=== PATIENT | female | born 1995 | race Caucasian/White ===

== ENCOUNTER 2017-02-04 00:47 | Emergency (ER) | payer MEDICAID ==
[~2017-02-04] VITALS: Ht 152.4 cm; Wt 121.6 kg
[~2017-02-04 00:47] MED LIST: ASPIRIN CHILDRE81 M2 PO; NEXIUM40 MG PO
[2017-02-04] MEDS ORDERED: AMOXICILLIN 50500 MG PO (01:00)
--- NOTE | 2017-02-04 01:05 | Emergency Room Report ---
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 N Clinical Suspician of Infection? N Mental Status: 1 - Regular (Normal Baseline) Sepsis Risk:Possible Sepsis Risk Have you (or family members/close friends) recently traveled outside the [place]? N If Yes, where/when: Have you had exposure to infectious disease within the past month? N TB? Other? Specify: Source patient, RN notes reviewed, family, old records Exam Limitations no limitations Comment over the last 2 days she has rt ear pain with no fever or sore throat and no cough Cardiac Chest Pain Chest pain indicative of cardiac No Timing/Duration this evening Severity moderate ALLERGIES Coded Allergies: acetaminophen (From PERCOCET) (NA-NAUSEA/VOMITING 02/04/17) oxycodone (From PERCOCET) (NA-NAUSEA/VOMITING 02/04/17) Home Medications Reported Medications Amoxicillin Trihydrate (Amoxicillin 500MG) 500 MG PO TID History Medical History General CAD? No Angina: No CO: No Hypertension? Yes Hyperlipidemia? No CHF? No DVT? No PE? No COPD? No Asthma? No Anemia? No GERD? No Gastric ulcers? No GI Bleed? No Hernia? No Thyroid Problems? No Hypothyroidism? No CVA? No Seizures? No Diabetes? No Renal Insuffiency? No End Stage Renal Disease? No UTI? No Stones? No BPH? No GB Disease: No Nephritic Syndrome? No Asplenia? No Hepatitis? No Sickle Cell Disease? No Arthritis? No Migraines? No Cataracts? No Glaucoma? No MRSA? No HIV? No TB? No Anxiety? No Depression? No Cancer? No More? 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 denies: ear discharge, throat swelling. Respiratory denies cough Cardiovascular denies palpitations Gastrointestinal denies diarrhea, denies vomiting Genitourinary denies: dysuria, frequency, hesitancy. Musculoskeletal denies back pain, denies joint pain, denies joint swelling, denies neck pain Skin denies rash Psychiatric/Neurological denies headache, denies seizure Physical Exam Vital Signs Vital Signs Date Time Temp Pulse Resp B/P Pulse O2 O2 Flow FiO2 Ox Delivery Rate 02/04 0049 97.4 98 20 154/95 96 - WBC >12,000 or <4,000 or 10% bands? 2 or more SIRS Criteria Met? B/P:154/95 MAP:114 Creatinine >2.0? UA output<0.5ml/kg/hr for 2 hrs? Platelet count >100,000? Lactate >2.0mmol/1? INR >1.2 or PTT > than 60 sec? Evidence of Organ Dysfunction? Provider documented clinical suspician of infection? N Sepsis Criteria Count: 2 Sepsis Risk: Possible Sepsis Risk General Appearance no apparent distress Eye Exam - bilateral eye PERRL, bilateral eye EOMI Ear, Nose, Throat normal ENT inspection, gingival disease Neck supple Respiratory Status No: respiratory distress. 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 No Departure Departure Time of Disposition 010 Disposition DC Home or Self Care(routine) Clinical Impression Primary Impression: Acute ear pain Qualifiers: Laterality: right Qualified Code: H92.01 - Otalgia, right ear Condition STABLE Patient Instructions DI for Ear Pain-Adult Additional Instructions see pcp for follow up and use meds Discharge Counseling Counseled pt/family regarding diagnosis, test results, medications/RX, follow up needs Prescriptions Current Visit Scripts CEPHALEXIN (Keflex 500MG Capsule) 500 MG PO Q8H #21 CAP ED Critical Care Critical Care No at 0114
--- NOTE | 2017-02-04 01:05 | Emergency Room Report ---
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 N Clinical Suspician of Infection? N Mental Status: 1 - Regular (Normal Baseline) Sepsis Risk:Possible Sepsis Risk Have you (or family members/close friends) recently traveled outside the [place]? N If Yes, where/when: Have you had exposure to infectious disease within the past month? N TB? Other? Specify: Source patient, RN notes reviewed, family, old records Exam Limitations no limitations Comment over the last 2 days she has rt ear pain with no fever or sore throat and no cough Cardiac Chest Pain Chest pain indicative of cardiac No Timing/Duration this evening Severity moderate ALLERGIES Coded Allergies: acetaminophen (From PERCOCET) (NA-NAUSEA/VOMITING 02/04/17) oxycodone (From PERCOCET) (NA-NAUSEA/VOMITING 02/04/17) Home Medications Reported Medications Amoxicillin Trihydrate (Amoxicillin 500MG) 500 MG PO TID History Medical History General CAD? No Angina: No NM: No Hypertension? Yes Hyperlipidemia? No CHF? No DVT? No PE? No COPD? No Asthma? No Anemia? No GERD? No Gastric ulcers? No GI Bleed? No Hernia? No Thyroid Problems? No Hypothyroidism? No CVA? No Seizures? No Diabetes? No Renal Insuffiency? No End Stage Renal Disease? No UTI? No Stones? No BPH? No GB Disease: No Nephritic Syndrome? No Asplenia? No Hepatitis? No Sickle Cell Disease? No Arthritis? No Migraines? No Cataracts? No Glaucoma? No MRSA? No HIV? No TB? No Anxiety? No Depression? No Cancer? No More? 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 denies: ear discharge, throat swelling. Respiratory denies cough Cardiovascular denies palpitations Gastrointestinal denies diarrhea, denies vomiting Genitourinary denies: dysuria, frequency, hesitancy. Musculoskeletal denies back pain, denies joint pain, denies joint swelling, denies neck pain Skin denies rash Psychiatric/Neurological denies headache, denies seizure Physical Exam Vital Signs Vital Signs Date Time Temp Pulse Resp B/P Pulse O2 O2 Flow FiO2 Ox Delivery Rate 02/04 0049 97.4 98 20 154/95 96 - WBC >12,000 or <4,000 or 10% bands? 2 or more SIRS Criteria Met? B/P:154/95 MAP:114 Creatinine >2.0? UA output<0.5ml/kg/hr for 2 hrs? Platelet count >100,000? Lactate >2.0mmol/1? INR >1.2 or PTT > than 60 sec? Evidence of Organ Dysfunction? Provider documented clinical suspician of infection? N Sepsis Criteria Count: 2 Sepsis Risk: Possible Sepsis Risk General Appearance no apparent distress Eye Exam - bilateral eye PERRL, bilateral eye EOMI Ear, Nose, Throat normal ENT inspection, gingival disease Neck supple Respiratory Status No: respiratory distress. 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 No Departure Departure Time of Disposition 010 Disposition DC Home or Self Care(routine) Clinical Impression Primary Impression: Acute ear pain Qualifiers: Laterality: right Qualified Code: H92.01 - Otalgia, right ear Condition STABLE Patient Instructions DI for Ear Pain-Adult Additional Instructions see pcp for follow up and use meds Discharge Counseling Counseled pt/family regarding diagnosis, test results, medications/RX, follow up needs Prescriptions Current Visit Scripts CEPHALEXIN (Keflex 500MG Capsule) 500 MG PO Q8H #21 CAP ED Critical Care Critical Care No at 0114
[2017-02-04] MEDS ORDERED: KEFLEX 500MG.500 MG PO (01:11)
[2017-02-04 01:24] VITALS: BP 154/95
== END 2017-02-04 01:25 | disposition home or self-care (01) ==
LOC: ER 00:47
DX: H92.01 Otalgia, right ear (principal); Z72.0 Tobacco use

== ENCOUNTER 2017-07-16 20:01 | Emergency (ER) | payer MEDICAID ==
[~2017-07-16] VITALS: Ht 152.4 cm; Wt 124.7 kg
[~2017-07-16 20:01] MED LIST changes: +AMOXICILLIN 50500 MG PO; +KEFLEX 500MG.500 MG PO; +METOPROLOL SUCC25 M2 PO
[2017-07-16 20:29] LABS: URINE BILIRUBIN - DIPSTICK NEGATIVE (NEG); URINE BLOOD 2+ (NEG)
--- NOTE | 2017-07-16 21:01 | Emergency Room Report ---
See Addendum History of Present Illness Time Seen by [id number] Presenting Problem in Triage Pt arrived:Walked Presenting Problem:PT STATES SHE IS HAVING PAIN IN HER LOWER ABD THAT IS RADIATING TO LOWER BACK, PT STATES SHE IS 15 WEEKS . 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 N Clinical Suspician of Infection? N Mental Status: 1 - Regular (Normal Baseline) Sepsis Risk:Possible Sepsis Risk Have you (or family members/close friends) recently traveled outside the [place]? N If Yes, where/when: Have you had exposure to infectious disease within the past month? N TB? Other? Specify: Source patient, RN notes reviewed, old records Exam Limitations no limitations Comment pt with abd and back pain over the last few days w/o vag bleeding but sl white d /c and no fever or trauma and no dysuria in this 15 week preg- has had u/s and to have shots for prematurity next week - Cardiac Chest Pain Chest pain indicative of cardiac No Timing/Duration this evening Severity moderate ALLERGIES Coded Allergies: acetaminophen (From PERCOCET) (NA-NAUSEA/VOMITING 02/04/17) oxycodone (From PERCOCET) (NA-NAUSEA/VOMITING 02/04/17) Home Medications Reported Medications Metoprolol Succinate 25 MG PO DAILY #30 History Medical History General CAD? No Angina: No DE: No Hypertension? Yes Hyperlipidemia? No CHF? No DVT? No PE? No COPD? No Asthma? No Anemia? No GERD? No Gastric ulcers? No GI Bleed? No Hernia? No Thyroid Problems? No Hypothyroidism? No CVA? No Seizures? No Diabetes? No Renal Insuffiency? No End Stage Renal Disease? No UTI? No Stones? No BPH? No GB Disease: No Nephritic Syndrome? No Asplenia? No Hepatitis? No Sickle Cell Disease? No Arthritis? No Migraines? No Cataracts? No Glaucoma? No MRSA? No HIV? No TB? No Anxiety? No Depression? No Cancer? No More? 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 Respiratory denies cough, denies shortness of breath, denies wheezing Cardiovascular denies chest pain, denies palpitations, denies syncope Gastrointestinal denies abdominal pain, denies diarrhea, denies vomiting Genitourinary see HPI. denies: abnormal vaginal bleeding, dysuria, frequency, hesitancy, hematuria. Musculoskeletal denies back pain, denies joint pain, denies joint swelling, denies neck pain Skin denies rash Psychiatric/Neurological denies headache, denies seizure Physical Exam Vital Signs Vital Signs Date Time Temp Pulse Resp B/P Pulse O2 O2 Flow FiO2 Ox Delivery Rate 07/16 2241 98.4 85 20 144/72 96 07/16 2115 98.4 97 20 130/60 97 07/16 2045 97 20 130/60 97 07/16 2014 98.4 102 20 131/47 97 - WBC >12,000 or <4,000 or 10% bands? 2 or more SIRS Criteria Met? B/P:144/72 MAP:75 Creatinine >2.0? UA output<0.5ml/kg/hr for 2 hrs? Platelet count >100,000? Lactate >2.0mmol/1? INR >1.2 or PTT > than 60 sec? Evidence of Organ Dysfunction? Provider documented clinical suspician of infection? N Sepsis Criteria Count: 2 Sepsis Risk: Possible Sepsis Risk General Appearance no apparent distress Eye Exam - bilateral eye PERRL, bilateral eye EOMI Ear, Nose, Throat normal ENT inspection Neck supple Respiratory Status No: respiratory distress. 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 No Results/Orders Laboratory Tests 07/16/172121: Sodium 137, Potassium 3.7, Chloride 102, Carbon Dioxide 24, BUN 4 L, Creatinine 0.5 L, Estimated Creat Clear 342 H, Estimated GFR (MDRD) 152, Glucose 94, Calcium 9.2, Total Bilirubin 0.2, AST 9 L, ALT 12, Alkaline Phosphatase 83, Total Protein 7.6, Albumin 3.0 L, Globulin 4.6 H, Albumin/Globulin Ratio 0.7 L, WBC 13.2 H, RBC 4.13 L, Hgb 11.7 L, Hct 34.9 L, MCV 84.4, RDW 13.4, Plt Count 258, MPV 8.4, Gran % 76.0, Gran # 10.0 H, Lymphocytes % 18.6, Monocytes % 4.1, Eosinophils % 1.1, Basophils % 0.1, Lymphocytes # 2.5, Monocytes # 0.5, Eosinophils # 0.2, Basophils # 0.0, PUBS MCHC 33.6, MCH 28.3 07/16/172013: Urine Color YELLOW, Urine Appearance CLEAR, Urine pH 6.0, Ur Specific [place] 1.020, Urine Protein NEGATIVE, Urine Ketones NEGATIVE, Urine Blood 2+ H, Urine Nitrate NEGATIVE, Urine Bilirubin NEGATIVE, Urine Urobilinogen 0.2, Ur Leukocyte Esterase 1+ H, Urine RBC 3-5, Urine WBC 3-5, Ur Squamous Epith Cells 10-20, Urine Bacteria 2+, Urine Yeast OCC, Urine Glucose NEGATIVE Current Medication Orders Sig/Stella Start time Last Medication Dose Route Stop Time Status Admin Sodium Chloride 10 ML PRN PRN 07/16 2100 AC IV 07/17 2054 Orders Procedure Date/time Status IV SALINE LOCK 07/16 2054 Active COMPLETE METABOLIC PANEL 07/16 2054 Complete CBC WITH AUTO DIFF 07/16 2054 Complete URINALYSIS/COMPLETE 07/16 2024 Complete URINE 07/16 2024 Complete CULTURE, URINE 07/16 2014 Active Departure Departure Time of Disposition 2241 Disposition DC Home or Self Care(routine) Clinical Impression Primary Impression: Qualifiers: Weeks of gestation: 15 weeks Qualified Code: Z3A.15 - 15 weeks gestation of Condition STABLE Patient Instructions DI for -- Discomforts and Remedies Additional Instructions call your ob in am for follow up Discharge Counseling Counseled pt/family regarding diagnosis, test results, follow up needs ED Critical Care Critical Care No at [id number]
--- OUTSIDE RECORDS SUMMARY | 2017-07-16 21:03 | External Medical Summary Rpt ---
Demographics Preferred Language Thai Marital Status Unknown Mandaen Affiliation Unknown Race Unknown Ethnic Group Unknown Author Author ELIZABETH Address Unknown Phone Immunization No patient found.
--- OUTSIDE RECORDS SUMMARY | 2017-07-16 21:03 | External Medical Summary Rpt ---
Demographics Preferred Language Swedish Marital Status Unknown Advent Affiliation Unknown Race Unknown Ethnic Group Unknown Author Author ELIZABETH Address Unknown Phone Immunization No patient found.
--- OUTSIDE RECORDS SUMMARY | 2017-07-16 21:04 | External Medical Summary Rpt ---
Author Author MONIQUE Roxann, [employer] Organization [employer] Address Unknown Phone Unavailable Results Choriogonadotropin.beta subunit ( test) [Presence] in Serum or Plasma Observa Value Referen Units Interpr Notes Date tion ce etation Range Choriog 93266.8 No mIU/ML No NON-PRE May 9 onadotr informa informa GNANT 2017 opin.be tion in tion in FEMALES ta source source subunit data data REFEREN CE (pregna RANGE = ncy 0 - 6 test) mIU/mLG [Presen estatio ce] in nal Age Serum or HCG Plasma RANGE0. 2 WEEKS 5 - 501-2 WEEKS 50 - 5002-3 WEEKS 100 - 5,0003- 4 WEEKS 500 - 10,0004 -5 WEEKS 1,000 - 50,0005 -6 WEEKS 10,000 - 100,000 6-8 WEEKS 15,000 - 200,000 2-3 MONTHS 10,000 - 100,000 CBC W Auto Differential panel in Blood Observa Value Referen Units Interpr Notes Date tion ce etation Range Basophils 0 - 0.2 K/MM3 Normal No May 092016 [#/volume on in 11:00 PM ] in source Blood by data Automated count Basophils 0.1 - 2.0 % Normal No May 09 inform2016 leukocyte on in 11:00 PM s in source Blood by data Automated count Eosinophi 0.0 - 0.4 K/mm3 Normal No May 09 ls informati 2016 [#/volume on in 11:00 PM ] in source Blood by data Automated count Eosinophi 0.1 - % Normal No May 09 ls/100 12.0 inform2016 leukocyte on in 11:00 PM s in source Blood by data Automated count Granulocy 1.8 - 7.8 K/mm3 High No May 09 eder informati 2016 [#/volume on in 11:00 PM ] in source Blood by data Automated count Granulocy 37.0 - % Normal No May 09 eder/100 80.0 inform2016 leukocyte on in 11:00 PM s in source Blood by data Automated count Hematocri 37.0 - % Normal No May 09 t [Volume 47.0 ati 2016 on in 11:00 PM Fraction] source of Blood data Hemoglobi 12.2 - g/dL Normal No May 8 n 16.2 informati 2016 [Mass/vol on in 11:00 PM ume] in source Blood data Lymphocyt 0.7 - 4.5 K/mm3 Normal No May 09 es inform2016 [#/volume on in 11:00 PM ] in source Unspecifi data ed specimen by Automated count Lymphocyt 10 - 50.0 % Normal No May 09 es informati 2016 [#/volume on in 11:00 PM ] in source Unspecifi data ed specimen by Automated count Erythrocy 27 - 31.2 pg Normal No May 09 te mean 2016 corpuscul on in 11:00 PM ar source hemoglobi data n [Entitic mass] Erythrocy 31.8 - g/dl Low No May 09 te mean 35.4 2016 corpuscul on in 11:00 PM ar source hemoglobi data n concentra tion [Mass/vol ume] by Automated count Erythrocy 82.2 - fl Normal No May 09 te mean 97.8 inform2016 corpuscul on in 11:00 PM ar volume source [Entitic data volume] by Automated count Monocytes 0.1 - 1.0 K/mm3 Normal No May 8 2016 [#/volume on in 11:00 PM ] in source Blood by data Automated count Monocytes 1.7 - 9.3 % Normal No May 8 /100 2016 leukocyte on in 11:00 PM s in source Blood by data Automated count Platelet 7.4 - fl Normal No May 09 mean 10.4 2016 volume on in 11:00 PM [Entitic source volume] data in Blood by Automated count Platelets 142 - 424 K/mm3 Normal No May 8 informati 2016 [#/volume on in 11:00 PM ] in source Blood data Erythrocy 4.2 - 5.4 M/mm3 Normal No May 8 eder informati 2016 [#/volume on in 11:00 PM ] in source Amniotic data fluid Erythrocy 11.5 - % Normal No May 09 te 17.5 2016 distribut on in 11:00 PM ion width source [Entitic data volume] by Automated count Leukocyte 4.8 - K/MM3 High No Nate 8 s 10.8 informati 2017 [#/volume on in 11:00 PM ] in source Blood data Urinalysis dipstick W Reflex Microscopic panel in Urine Observa Value Referen Units Interpr Notes Date tion ce etation Range Appeara CLEAR CLEAR No No No Nate 8 nce of informa informa informa 2017 Urine tion in tion in tion in 10:30 source source source PM data data data Bacteri 1+ O No No No May 8 a informa informa informa 2017 [Presen tion in tion in tion in 10:30 ce] in source source source PM Urine data data data sedimen t by Light microsc opy Bilirub NEGATIV NEG No No No May 09 in E informa informa informa 2016 [Presen tion in tion in tion in 10:30 ce] in source source source PM Urine data data data by Test strip Erythro TRACE-I NEG No No No May 09 cytes NTACT informa informa informa 2016 [Presen tion in tion in tion in 10:30 ce] in source source source PM Urine data data data Color YELLOW YELLOW No No No May 8 of informa informa informa 2016 Urine tion in tion in tion in 10:30 source source source PM data data data Glucose NEG No No No May 09 [Mass/vol informati informati informati 2017 ume] in on in on in on in 10:30 PM Urine by source source source Test data data data strip Ketones NEGATIV NEG mg/dL No No May 09 E informa informa 2016 [Presen tion in tion in 10:30 ce] in source source PM Urine data data by Automat ed test strip Mucus 1+ NEG No Abnorma No May 8 [Presen informa l informa 2016 ce] in tion in tion in 10:30 Urine source source PM sedimen data data t by Light microsc opy Nitrite NEGATIV NEG No No No May 09 E informa informa informa 2016 [Presen tion in tion in tion in 10:30 ce] in source source source PM Urine data data data by Test strip pH of 5.0 - 8.5 No Normal No May 09 Urine informati informati 2017 on in on in 10:30 PM source source data data Protein NEG mg/dL High No May 8 [Mass/vol informati 2017 ume] in on in 10:30 PM Urine by source Automated data test strip Erythro 3-5 0 rbc/hpf No No May 09 cytes informa informa 2017 [Presen tion in tion in 10:30 ce] in source source PM Urine data data sedimen t by Light microsc opy Specific 1.005 - No Normal No May 09 gravity 1.030 informati informati 2017 of Urine on in on in 10:30 PM source source data data Epithel TNTC 0 - 5 #/hpf No No May 09 ial informa informa 2017 cells.s tion in tion in 10:30 quamous source source PM data data [Presen ce] in Urine sedimen t by Microsc opy high power field Urobili 0.2 NEG E.U./dL No No May 09 nogen informa informa 2016 [Presen tion in tion in 10:30 ce] in source source PM Urine data data by Test strip Leukocy [3 O wbc/hpf No No May 09 eder wbc/hpf informa informa 2016 [#/volu ; 5 tion in tion in 10:30 me] in wbc/hpf source source PM Urine ] data data Choriogonadotropin.beta subunit [Units] in 24 hour Urine Observa Value Referen Units Interpr Notes Date tion ce etation Range Choriogon NEG No No No May 09 adotropin informati informati informati 2017 .beta on in on in on in 10:30 PM subunit source source source [Units] data data data in 24 hour Urine Urinalysis dipstick W Reflex Microscopic panel in Urine Observa Value Referen Units Interpr Notes Date tion ce etation Range Appeara CLEAR CLEAR No No No May 09 nce of informa informa informa 2017 Urine tion in tion in tion in 10:30 source source source PM data data data Bilirub NEGATIV NEG No No No May 09 in E informa informa informa 2016 [Presen tion in tion in tion in 10:30 ce] in source source source PM Urine data data data by Test strip Erythro TRACE-I NEG No No No May 09 cytes NTACT informa informa informa 2016 [Presen tion in tion in tion in 10:30 ce] in source source source PM Urine data data data Color YELLOW YELLOW No No No Nate 8 of informa informa informa 2017 Urine tion in tion in tion in 10:30 source source source PM data data data Glucose NEG No No No Nate 8 [Mass/vol informati informati informati 2017 ume] in on in on in on in 10:30 PM Urine by source source source Test data data data strip Ketones NEGATIV NEG mg/dL No No May 8 E informa informa 2016 [Presen tion in tion in 10:30 ce] in source source PM Urine data data by Automat ed test strip Mucus 1+ NEG No Abnorma No Nate 8 [Presen informa l informa 2017 ce] in tion in tion in 10:30 Urine source source PM sedimen data data t by Light microsc opy Nitrite NEGATIV NEG No No No May 8 E informa informa informa 2016 [Presen tion in tion in tion in 10:30 ce] in source source source PM Urine data data data by Test strip pH of 5.0 - 8.5 No Normal No Nate 8 Urine informati informati 2017 on in on in 10:30 PM source source data data Protein NEG mg/dL High No Nate 8 [Mass/vol informati 2017 ume] in on in 10:30 PM Urine by source Automated data test strip Specific 1.005 - No Normal No Nate 8 gravity 1.030 informati informati 2017 of Urine on in on in 10:30 PM source source data data Urobili 0.2 NEG E.U./dL No No May 8 nogen informa informa 2016 [Presen tion in tion in 10:30 ce] in source source PM Urine data data by Test strip Chlamyd/GC TMA Observa Value Referen Units Interpr Notes Date tion ce etation Range Chlamyd Negativ No No No No Jul 30 ia e informa informa informa informa 2016 trachom tion in tion in tion in tion in 11:34 atis source source source source AM data data data data Neisser Negativ No No No Testing Jul 30 ia e informa informa informa 2016 gonorrh tion in tion in tion in methodo 11:34 oeae source source source logy is AM data data data transcr iption mediate d amplifi cation (TMA) using the Aptima Combo 2 assay from [employer] be.\.br \A negativ e result does not complet lo rule out a Chlamyd ia trachom atis or Neisser ia gonorrh oeae infecti on due to potenti al inhibit ors or levels present below the limit of detecti on by this assay. Results are depende nt on proper collect ion and transpo rt of specime n. This test is indicat ed for medical purpose s only and should not be used for legal or forensi c purpose s.\.br\ \.br\Th e perform ance charact eristic s of this test were validat ed by [facility] are laborat ory. This assay is FDA cleared to test the followi ng specime ns: clinici an-cristian ected endocer vical, vaginal and male urethra l swab specime ns, patient collect ed vaginal specime ns within a clinic setting , Thin Prep Specime ns in Preserv Cyt Solutio n, and first-s tream, unprese rved male urine specime ns. Testing on female urine is not FDA approve d by this methodo logy, but has been develop ed and validat ed by the [facility] are laborat ory. Detaile d methodo logy is availab le upon request . PTT Observa Value Referen Units Interpr Notes Date tion ce etation Range Activat 31.3 26.0 - second( No Therape Jul 29 ed 36.4 s) informa utic 2015 partial tion in range 5:30 PM source for thrombp data direct lastin thrombi time n (aPTT) inhibit in ors: Blood Argatro by ban is Coagula 1.5 to tion 3 times assay the aPTT baselin e. Lepirud in is 1.5 to 2 times the aPTT baselin e. The aPTT should not exceed 100 seconds .\.br\T he dosage of Argatro ban should be decreas ed in patient s with hepatic impairm ent. The dosage of Lepirud in should be decreas ed in renal insuffi ciency. \.br\\. br\The aPTT is no longer the appropr iate test to monitor unfract ionated heparin anticoa gulatio n. PT Observa Value Referen Units Interpr Notes Date tion ce etation Range PT 12.2 10.1 - second( No No Jul 29 12.9 s) informa informa 2016 tion in tion in 5:30 PM source source data data INR in 1.06 0.88 - No No Level Jul 29 Platele 1.12 informa informa of 2016 t poor tion in tion in Therapy 5:30 PM plasma source source by data data Indicat Coagula ions tion Target assay INR Range\. br\\.br \Standa rd Dose Treatme nt and prophyl axis of venous 2.0 - 3.0\.br \ thrombo sis, pulmona ry embolis m\.br\\ .br\ High Dose High risk patient s with mechani acthy 2.5 - 3.5\.br \ heart valves Uric Acid Observa Value Referen Units Interpr Notes Date tion ce etation Range Urate 5.6 2.4 - mg/dL No No Jul 29 [Mass/v 5.7 informa informa 2016 olume] tion in tion in 5:14 PM in source source Serum data data or Plasma Auto Diff Observa Value Referen Units Interpr Notes Date tion ce etation Range Neutrop 81.7 No % No No Jul 29 hils informa informa informa 2015 [#/volu tion in tion in tion in 4:58 PM me] in source source source Blood data data data by Automat ed count Lymphoc 11.7 No % No No Jul 29 ytes informa informa informa 2015 [#/volu tion in tion in tion in 4:58 PM me] in source source source Blood data data data by Automat ed count Monocyt 5.6 No % No No Jul 29 es informa informa informa 2016 [#/volu tion in tion in tion in 4:58 PM me] in source source source Blood data data data by Automat ed count Eos 0.6 No % No No Jul 29 Percent informa informa informa 2016 tion in tion in tion in 4:58 PM source source source data data data Baso 0.4 No % No No Jul 29 Percent informa informa informa 2016 tion in tion in tion in 4:58 PM source source source data data data Neut# 11.6 1.8 - x10(3)/ High No Aug 28 7.7 mcL informa 2016 tion in 4:58 PM source data Lymph# 1.7 0.6 - x10(3)/ No No Aug 28 4.8 mcL informa informa 2016 tion in tion in 4:58 PM source source data data [place]# 0.8 0.0 - x10(3)/ No No Aug 28 1.3 mcL informa informa 2016 tion in tion in 4:58 PM source source data data Eos# 0.1 0.0 - x10(3)/ No No Aug 28 0.5 mcL informa informa 2016 tion in tion in 4:58 PM source source data data Baso# 0.1 0.0 - x10(3)/ No No Jul 28 0.2 mcL informa informa 2016 tion in tion in 4:58 PM source source data data CBC Observa Value Referen Units Interpr Notes Date tion ce etation Range LEUKOCY 14.2 4.0 - x10(3)/ High No Jul 28 EDER 11.0 [facility] informa 2016 tion in 4:58 PM source data Erythro 3.75 3.80 - x10(6)/ Low No Jul 28 cytes 5.10 [facility] informa 2015 [#/volu tion in 4:58 PM me] in source Blood data by Automat ed count Hemoglo 10.5 12.0 - gm/dL Low No Jul 29 bin 15.6 informa 2015 [Mass/v tion in 4:58 PM olume] source in data Blood Hematoc 31.2 35.7 - % Low No Jul 29 rit 45.9 informa 2016 [Volume tion in 4:58 PM source Fractio data n] of Blood by Automat ed count Erythro 83.3 82.5 - fL No No Jul 29 cyte 99.8 informa informa 2016 mean tion in tion in 4:58 PM corpusc source source ular data data volume [Entiti c volume] by Automat ed count Erythro 28.1 27.0 - pg No No Jul 28 cyte 34.3 informa informa 2016 mean tion in tion in 4:58 PM corpusc source source ular data data hemoglo bin [Entiti c mass] by Automat ed count Erythro 33.7 32.1 - gm/dL No No Jul 29 cyte 35.3 informa informa 2016 mean tion in tion in 4:58 PM corpusc source source ular data data hemoglo bin concent ration [Mass/v olume] by Automat ed count Erythro 13.5 11.5 - % No No Jul 29 cyte 15.0 informa informa 2016 distrib tion in tion in 4:58 PM ution source source width data data [Ratio] by Automat ed count Platele 293 144 - x10(3)/ No No Jul 29 ts 423 mcL informa informa 2016 [#/volu tion in tion in 4:58 PM me] in source source Blood data data by Automat ed count MPV 8.5 6.8 - fL No No Jul 29 10.8 informa informa 2016 tion in tion in 4:58 PM source source data data Ur Prot/Crea Ratio Observa Value Referen Units Interpr Notes Date tion ce etation Range Urine 11.5 No mg/dL No No Jul 29 Protein informa informa informa 2016 tion in tion in tion in 5:26 PM source source source data data data Urine 69.5 No mg/dL No No Jul 29 Creatin informa informa informa 2016 ine tion in tion in tion in 5:27 PM source source source data data data Ur 0.17 <=0.14 mg/mg High No Jul 29 Protein informa 2016 /Creat tion in 5:27 PM source data POC UA Observa Value Referen Units Interpr Notes Date ti ce etation Range UA Yellow No No No No Jul 29 Color informa informa informa informa 2016 POC tion in tion in tion in tion in 4:21 PM source source source source data data data data UA Clear Clear No No No Jul 29 Appear informa informa informa 2016 POC tion in tion in tion in 4:21 PM source source source data data data UA Gluc Negativ Negativ No No No Jul 29 POC e e informa informa informa 2016 tion in tion in tion in 4:21 PM source source source data data data UA Negativ Negativ No No No Jul 29 Ketones e e informa informa informa 2016 POC tion in tion in tion in 4:21 PM source source source data data data UA Trace-l Negativ No Abnorma No Jul 29 Blood ysed e informa l informa 2016 POC tion in tion in 4:21 PM source source data data UA pH 7.0 5.0 - No No No Jul 29 POC 8.0 informa informa informa 2016 tion in tion in tion in 4:21 PM source source source data data data UA Negativ Negativ No No No Jul 29 Protein e e informa informa informa 2016 POC tion in tion in tion in 4:21 PM source source source data data data UA 0.2 <=1 No No No Jul 29 Urobili mg/dl mg/dl informa informa informa 2016 nogen tion in tion in tion in 4:21 PM POC source source source data data data UA Negativ Negativ No No No Jul 29 Nitrite e e informa informa informa 2016 POC tion in tion in tion in 4:21 PM source source source data data data UA Leuk Negativ Negativ No No No Jul 29 Est e e informa informa informa 2016 POC tion in tion in tion in 4:21 PM source source source data data data UA SG 1.015 1.001 - No No No Jul 29 POC 1.035 informa informa informa 2016 tion in tion in tion in 4:21 PM source source source data data data
--- OUTSIDE RECORDS SUMMARY | 2017-07-16 21:04 | External Medical Summary Rpt ---
Author Author MONIQUE Roxann, [employer] Organization [employer] Address Unknown Phone Unavailable Results Choriogonadotropin.beta subunit ( test) [Presence] in Serum or Plasma Observa Value Referen Units Interpr Notes Date tion ce etation Range Choriog 10072.8 No mIU/ML No NON-PRE May 9 onadotr [...] using the Aptima Combo 2 assay from [employer] be.\.br \A negativ e result does [...] of this test were validat ed by [facility] are laborat ory. This assay is FDA [...] develop ed and validat ed by the [facility] are laborat ory. Detaile d methodo logy [...] Dose High risk patient s with mechani cathy 2.5 - 3.5\.br \ heart valves Uric [...] in 4:58 PM source source data data [place]# 0.8 0.0 - x10(3)/ No No Aug [...] x10(3)/ High No Jul 28 EDER 11.0 [facility] informa 2016 tion in 4:58 PM source data Erythro 3.75 3.80 - x10(6)/ Low No Jul 28 cytes 5.10 [facility] informa 2015 [#/volu tion in 4:58 PM [...]
[2017-07-16 21:34] LABS: HEMOGLOBIN 11.7 g/dL (12.2-16.2); LYMPH # 2.5 K/mm3 (0.7-4.5); LYMPH % 18.6 % (10-50.0)
[2017-07-16 23:02] VITALS: BP 144/72
== END 2017-07-16 23:02 | disposition home or self-care (01) ==
LOC: ER 20:01
PROVIDERS: Emergency Medicine
DX: R10.30 Lower abdominal pain, unspecified (principal); Z3A.15 15 weeks gestation of pregnancy; Z72.0 Tobacco use